=== PATIENT | female | born 1965 | race Caucasian/White ===

== ENCOUNTER 2017-07-26 16:52 | Emergency (ER) | payer OTHER ==
[~2017-07-26] VITALS: Ht 149.9 cm; Wt 46.0 kg
[2017-07-26 18:55] VITALS: BP 143/99
== END 2017-07-26 18:58 | disposition home or self-care (01) ==
LOC: EME 16:52
DX: R03.0 Elevated blood-pressure reading, without diagnosis of hypertension (principal); F41.9 Anxiety disorder, unspecified
CPT/HCPCS: 70450; 93005; 99281; 99284